=== PATIENT | female | born 1980 | race Caucasian/White ===

== ENCOUNTER 2019-06-15 12:04 | Emergency (ER) | payer SELFPAY ==
[~2019-06-15] VITALS: Ht 154.9 cm; Wt 61.4 kg
[2019-06-15] MEDS ORDERED: ONDANSETRON HCL 4 MG/2 ML VIAL IVP ONE (13:15)
[2019-06-15] MEDS ORDERED: MORPHINE SULFATE 4 MG/ML SYRINGE IVP ONE (13:15)
[2019-06-15] MEDS ORDERED: SODIUM CHLORIDE 0.9% 1,000 ML IV ONE (13:15)
[2019-06-15 13:35] LABS: APPEARANCE,URINE CLOUDY (CLEAR); BILIRUBIN,URINE NEGATIVE (NEGATIVE); GLUCOSE, URINE (UA) NEGATIVE (NEGATIVE); KETONES,URINE NEGATIVE (NEGATIVE); LEUKOCYTE ESTERASE ,URINE LARGE (NEGATIVE); NITRATE,URINE NEGATIVE (NEGATIVE); OCCULT BLOOD,URINE MODERATE (NEGATIVE); PROTEIN,URINE TRACE (NEGATIVE); UROBILINOGEN,URINE 0.2 mg/dL (<=1.0)
[2019-06-15 13:38] LABS: EOSINOPHILS % (AUTO) 0.8 % (1.0-6.0); HEMATOCRIT 40.2 % (36-46); HEMOGLOBIN 13.9 g/dL (12.0-16.0); LYMPHOCYTES # (AUTO) 2.1 K/uL (1.0-4.8); LYMPHOCYTES % (AUTO) 15.4 % (22.0-44.0); MEAN CORPUSCULAR HEMOGLOBIN 31.3 pg (26.0-34.0); MEAN CORPUSCULAR HGB CONC 34.4 G/dL (31.0-37.0); MEAN CORPUSCULAR VOLUME 91 fL (80-100); MONOCYTES # (AUTO) 0.6 K/uL (0.1-1.0); MONOCYTES % (AUTO) 4.4 % (2.0-9.0); NEUTROPHILS # (AUTO) 10.7 K/uL (1.8-7.7); NEUTROPHILS % (AUTO) 78.4 % (40.0-70.0); PLATELET COUNT (AUTO) 271 K/uL (150-450); RED BLOOD CELL COUNT(AUTO) 4.43 MIL/uL (4.00-5.20); RED CELL DISTRIBUTION WIDTH 13.4 % (11.5-14.5)
[2019-06-15 14:06] LABS: CALCIUM, TOTAL 8.5 mg/dL (8.8-10.5); CREATININE 1.16 mg/dL (0.60-1.30); POTASSIUM 3.5 mmol/L (3.5-5.1)
[2019-06-15 14:12] LABS: BACTERIA,URINE Few /HPF (None Seen); RBC,URINE 0-2 /HPF (0-2); SQUAMOUS EPITHELIAL CELL,UR Few /LPF (None Seen); WBC,URINE 51-100 /HPF (0-5)
[2019-06-15] MEDS ORDERED: KETOROLAC TROMETHAMINE 30 MG/ML VIAL IVP ONE (14:30)
[2019-06-15 15:28] VITALS: BP 121/75
[2019-06-15] MEDS ORDERED: PHENAZOPYRIDINE HCL 100 MG TABLET PO ONE (16:00)
[2019-06-15] MEDS ORDERED: SULFAMETHOX/TRIMETH DS 800-160 MG/TABLET PO ONE (16:00)
== END 2019-06-15 16:24 | disposition home or self-care (01) ==
LOC: EMS 12:07
DX: N30.00 Acute cystitis without hematuria (principal)
CPT/HCPCS: 36415; 74176; 80048; 81001; 81025; 84702; 84703; 85025; 87086; 96374; 96375; 99284; J1885; J2270; J2405; J7030

== ENCOUNTER 2021-10-07 05:10 | Emergency (ER) | payer OTHER ==
[~2021-10-07] VITALS: Ht 154.9 cm; Wt 55.5 kg
[2021-10-07 05:45] LABS: APPEARANCE,URINE CLEAR (CLEAR); BILIRUBIN,URINE NEGATIVE (NEGATIVE); GLUCOSE, URINE (UA) NEGATIVE (NEGATIVE); KETONES,URINE >=80 mg/dL (NEGATIVE); LEUKOCYTE ESTERASE ,URINE NEGATIVE (NEGATIVE); NITRATE,URINE NEGATIVE (NEGATIVE); OCCULT BLOOD,URINE SMALL (NEGATIVE); PH,URINE 8.5 (5.0-8.0); PROTEIN,URINE TRACE (NEGATIVE); UROBILINOGEN,URINE 0.2 mg/dL (<=1.0)
[2021-10-07 05:47] LABS: BACTERIA,URINE Rare /HPF (None Seen); WBC,URINE 0-2 /HPF (0-5)
[2021-10-07] MEDS ORDERED: ONDANSETRON HCL 4 MG/2 ML VIAL IVP ONE (06:15)
[2021-10-07] MEDS ORDERED: HYDROmorphone 2 MG/ML VIAL IVP ONE (06:15)
[2021-10-07] MEDS ORDERED: SODIUM CHLORIDE 0.9% 2,000 ML IV ONE (06:15)
[2021-10-07 06:34] LABS: BASOPHILS % (AUTO) 0.8 % (0.0-2.0); EOSINOPHILS % (AUTO) 0.2 % (1.0-6.0); HEMATOCRIT 38.9 % (36-46); HEMOGLOBIN 13.6 g/dL (12.0-16.0); LYMPHOCYTES # (AUTO) 1.4 K/uL (1.0-4.8); LYMPHOCYTES % (AUTO) 17.1 % (22.0-44.0); MEAN CORPUSCULAR HEMOGLOBIN 30.8 pg (26.0-34.0); MEAN CORPUSCULAR HGB CONC 34.9 G/dL (31.0-37.0); MEAN CORPUSCULAR VOLUME 88 fL (80-100); MONOCYTES # (AUTO) 0.6 K/uL (0.1-1.0); NEUTROPHILS # (AUTO) 6.1 K/uL (1.8-7.7); NEUTROPHILS % (AUTO) 74.9 % (40.0-70.0); PLATELET COUNT (AUTO) 246 K/uL (150-450); RED BLOOD CELL COUNT(AUTO) 4.41 MIL/uL (4.00-5.20)
[2021-10-07 06:52] LABS: ALANINE AMINOTRANSFERASE 18 U/L (12-78); ALBUMIN 3.8 g/dL (3.4-5.0); ALKALINE PHOSPHATASE 59 U/L (46-116); ANION GAP 13 mmol/L (8-16); ASPARTATE AMINOTRANSFERASE 22 U/L (15-37); BILIRUBIN,TOTAL 1.4 mg/dL (0.1-1.0); CALCIUM, TOTAL 8.6 mg/dL (8.8-10.5); CARBON DIOXIDE 26 mmol/L (22-29); CHLORIDE 101 mmol/L (98-107); CREATININE 0.89 mg/dL (0.60-1.30); GLOMERULAR FILTR. RATE CALC > 60 mL/min (>60); GLUCOSE,RANDOM 109 mg/dL (70-110); LIPASE 80 U/L (73-393); SODIUM SERUM 140 mmol/L (136-145); TOTAL PROTEIN, SERUM 7.8 g/dL (6.4-8.2); UREA NITROGEN, BLOOD 7 mg/dL (7-18)
[2021-10-07 07:30] VITALS: BP 144/89
[2021-10-07] MEDS ORDERED: MAG HYDROX/AL HYDROX/SIMETH ES 30 ML SUSPENSION UDCUP PO ONE (07:30)
[2021-10-07] MEDS ORDERED: LORazepam 1 MG TABLET PO ONE (07:30)
[2021-10-07] MEDS ORDERED: POTASSIUM CHLORIDE 10% 40 MEQ/30 ML LIQUID UDCUP PO ONE (07:30)
[2021-10-07] MEDS ORDERED: ONDA-104 PO (07:54)
[2021-10-07] MEDS ORDERED: FAMO20 PO (07:54)
[2021-10-07] MEDS ORDERED: MAAL30 PO (07:54)
== END 2021-10-07 08:02 | disposition home or self-care (01) ==
LOC: EMS 05:12
DX: K29.70 Gastritis, unspecified, without bleeding (principal); F43.20 Adjustment disorder, unspecified; E87.6 Hypokalemia; Z79.899 Other long term (current) drug therapy
CPT/HCPCS: 36415; 80053; 81001; 83690; 84703; 85025; 96361; 96374; 96375; 99284; G0480; J1170; J2405; J7030

== ENCOUNTER 2022-04-03 08:11 | Emergency (ER) | payer OTHER ==
[~2022-04-03] VITALS: Ht 154.9 cm; Wt 54.5 kg
[~2022-04-03 08:11] MED LIST: FAMO20 PO; MAAL30 PO; ONDA-104 PO
[2022-04-03 08:39] LABS: EOSINOPHILS % (AUTO) 0.1 % (1.0-6.0); HEMATOCRIT 39.9 % (36-46); HEMOGLOBIN 13.7 g/dL (12.0-16.0); LYMPHOCYTES # (AUTO) 1.2 K/uL (1.0-4.8); LYMPHOCYTES % (AUTO) 17.2 % (22.0-44.0); MEAN CORPUSCULAR HEMOGLOBIN 30.6 pg (26.0-34.0); MEAN CORPUSCULAR HGB CONC 34.4 G/dL (31.0-37.0); MEAN CORPUSCULAR VOLUME 89 fL (80-100); MONOCYTES # (AUTO) 0.5 K/uL (0.1-1.0); MONOCYTES % (AUTO) 6.4 % (2.0-9.0); NEUTROPHILS # (AUTO) 5.4 K/uL (1.8-7.7); NEUTROPHILS % (AUTO) 75.3 % (40.0-70.0); PLATELET COUNT (AUTO) 341 K/uL (150-450); RED BLOOD CELL COUNT(AUTO) 4.48 MIL/uL (4.00-5.20); RED CELL DISTRIBUTION WIDTH 17.7 % (11.5-14.5)
[2022-04-03 08:50] LABS: CALCIUM, TOTAL 8.4 mg/dL (8.8-10.5); CREATININE 1.22 mg/dL (0.60-1.30)
[2022-04-03 08:56] LABS: BILIRUBIN,TOTAL 0.3 mg/dL (0.1-1.0); TOTAL PROTEIN, SERUM 8.1 g/dL (6.4-8.2)
[2022-04-03 10:44] VITALS: BP 133/85
[2022-04-03] MEDS ORDERED: LORazepam 1 MG TABLET PO ONE (13:45)
[2022-04-03] MEDS ORDERED: LORA-999 PO (13:59)
[2022-04-03] MEDS ORDERED: MAG HYDROX/AL HYDROX/SIMETH ES 30 ML SUSPENSION UDCUP PO ONE (14:00)
[2022-04-03] MEDS ORDERED: PHENOBARB/HYOSCY/ATROPINE/SCOP 5 ML UDCUP ELIXIR PO ONE (14:00)
[2022-04-03 14:36] LABS: APPEARANCE,URINE HAZY (CLEAR); BILIRUBIN,URINE NEGATIVE (NEGATIVE); GLUCOSE, URINE (UA) NEGATIVE (NEGATIVE); KETONES,URINE 80-100 mg/dL (NEGATIVE); LEUKOCYTE ESTERASE ,URINE NEGATIVE (NEGATIVE); NITRATE,URINE POSITIVE (NEGATIVE); OCCULT BLOOD,URINE NEGATIVE (NEGATIVE); PH,URINE 8.5 (5.0-8.0); PROTEIN,URINE 100-200,SEE CONFIRM mg/dL (NEGATIVE); SPECIFIC GRAVITIY, URINE 1.028 (1.003-1.030); UROBILINOGEN,URINE <=1.0 mg/dL (<=1.0)
[2022-04-03 14:46] LABS: BACTERIA,URINE Many /HPF (None Seen); RBC,URINE 0-2 /HPF (0-2); SULFOSALICYLIC ACID,URINE 1+ (Negative); WBC,URINE 0-2 /HPF (0-5)
[2022-04-03 14:47] LABS: SQUAMOUS EPITHELIAL CELL,UR Moderate /LPF (None Seen)
== END 2022-04-03 14:27 | disposition home or self-care (01) ==
LOC: EMS 08:11
DX: R10.13 Epigastric pain (principal); F41.9 Anxiety disorder, unspecified
CPT/HCPCS: 80053; 81001; 81002; 83690; 85025; 87086; 93005; 99284

== ENCOUNTER 2023-12-18 18:36 | Emergency (ER) | payer OTHER ==
[~2023-12-18] VITALS: Ht 152.4 cm; Wt 54.5 kg
[~2023-12-18 18:36] MED LIST changes: +LORA-999 PO
[2023-12-18 20:11] LABS: BASOPHILS % (AUTO) 0.7 % (0.0-2.0); EOSINOPHILS % (AUTO) 0.1 % (1.0-6.0); HEMATOCRIT 36.6 % (36-46); HEMOGLOBIN 11.8 g/dL (12.0-16.0); LYMPHOCYTES # (AUTO) 1.7 K/uL (1.0-4.8); LYMPHOCYTES % (AUTO) 18.2 % (22.0-44.0); MEAN CORPUSCULAR HEMOGLOBIN 27.2 pg (26.0-34.0); MEAN CORPUSCULAR HGB CONC 32.3 G/dL (31.0-37.0); MEAN CORPUSCULAR VOLUME 84 fL (80-100); MONOCYTES # (AUTO) 0.6 K/uL (0.1-1.0); MONOCYTES % (AUTO) 6.7 % (2.0-9.0); NEUTROPHILS # (AUTO) 7.1 K/uL (1.8-7.7); NEUTROPHILS % (AUTO) 74.3 % (40.0-70.0); PLATELET COUNT (AUTO) 406 K/uL (150-450); RED BLOOD CELL COUNT(AUTO) 4.35 MIL/uL (4.00-5.20); RED CELL DISTRIBUTION WIDTH 19.6 % (11.5-14.5); WHITE BLOOD COUNT (AUTO) 9.6 K/uL (4.5-11.0)
[2023-12-18] MEDS: MAG HYDROX/ALUMINUM HYD/SIMETH 30 ML SUSPENSION UDCUP PO ONE (20:14)
[2023-12-18] MEDS: ACETAMINOPHEN 500 MG TABLET PO ONE (20:14)
[2023-12-18] MEDS: SODIUM CHLORIDE 0.9% 1,000 ML IV ONE ×2 (20:15→20:45)
[2023-12-18] MEDS: ONDANSETRON HCL 4 MG/2 ML VIAL IVP ONE (20:17)
[2023-12-18] MEDS: FAMOTIDINE 20 MG/2 ML VIAL IVP ONE (20:17)
[2023-12-18] MEDS: KETOROLAC TROMETHAMINE 30 MG/ML VIAL IVP ONE (20:17)
[2023-12-18 20:19] LABS: CALCIUM, TOTAL 8.6 mg/dL (8.8-10.5); CREATININE 1.03 mg/dL (0.60-1.30); POTASSIUM 3.4 mmol/L (3.5-5.1)
[2023-12-18 20:26] LABS: ALBUMIN 3.9 g/dL (3.4-5.0); BILIRUBIN,TOTAL 0.4 mg/dL (0.1-1.0); TOTAL PROTEIN, SERUM 8.3 g/dL (6.4-8.2)
[2023-12-18] MEDS ORDERED: IOHEXOL 350 MG/ML 100 ML VIAL ONE (20:30)
[2023-12-18] MEDS ORDERED: SODIUM CHLORIDE 0.9% 100 ML ONE (20:30)
[2023-12-18 21:17] LABS: ALCOHOL, BLOOD (SERUM) 63 mg/dL (0-10)
[2023-12-18 21:29] LABS: LACTIC ACID 5.9 mmol/L (0.4-2.0)
[2023-12-18] MEDS ORDERED: 0.9% SODIUM CHLORIDE 10 ML SYRINGE IVP PRN (22:00)
[2023-12-18] MEDS ORDERED: ONDANSETRON HCL 4 MG/2 ML VIAL IVP PRN (22:00)
[2023-12-18] MEDS ORDERED: ACETAMINOPHEN 325 MG TABLET PO PRN (22:00)
[2023-12-18 22:16] LABS: APPEARANCE,URINE CLEAR (CLEAR); BILIRUBIN,URINE NEGATIVE (NEGATIVE); COLOR,URINE LIGHT YELLOW (YELLOW); GLUCOSE, URINE (UA) NEGATIVE (NEGATIVE); KETONES,URINE 40-60 mg/dL (NEGATIVE); LEUKOCYTE ESTERASE ,URINE TRACE (NEGATIVE); NITRATE,URINE NEGATIVE (NEGATIVE); OCCULT BLOOD,URINE MODERATE (NEGATIVE); PROTEIN,URINE 30-70 mg/dL (NEGATIVE); UROBILINOGEN,URINE <=1.0 mg/dL (<=1.0)
[2023-12-18 22:23] LABS: ALCOHOL, URINE DRUG SCREEN POSITIVE (NEGATIVE); AMPHET/METH SCREEN,URINE NEGATIVE (NEGATIVE); BARBITURATE SCREEN, URINE NEGATIVE (NEGATIVE); BENZODIAZEPINES SCREEN,URINE NEGATIVE (NEGATIVE); CANNABINOID SCREEN,URINE NEGATIVE (NEGATIVE); COCAINE SCREEN,URINE NEGATIVE (NEGATIVE); METHADONE SCREEN, URINE NEGATIVE (NEGATIVE); OPIATE SCREEN,URINE NEGATIVE (NEGATIVE); PHENCYCLIDINE SCREEN,URINE NEGATIVE (NEGATIVE)
[2023-12-18 22:35] LABS: SPECIFIC GRAVITIY, URINE > 1.050 (1.003-1.030)
[2023-12-18 23:27] LABS: BACTERIA,URINE None Seen /HPF (None Seen); HYALINE CASTS, URINE 0-2 /LPF (None Seen); SQUAMOUS EPITHELIAL CELL,UR Few /LPF (None Seen)
[2023-12-19] MEDS ORDERED: HEPARIN SODIUM,PORCINE 5,000 UNITS/ML VIAL SQ SCH
[2023-12-19] MEDS ORDERED: CefTRIAXone 1 GM/DEXTROSE 50 ML IV SCH (01:00)
[2023-12-19] MEDS ORDERED: LORazepam 2 MG TABLET PO PRN (01:15)
[2023-12-19 01:17] VITALS: BP 125/69; PULSE 85; RESP 17; TEMP 97.9
[2023-12-19] MEDS ORDERED: 1: MAGNESIUM SULFATE 2 GM, MVI, ADULT NO.1 WITH VIT K 10 ML, THIAMINE 100 MG, FOLIC ACID IV SCH (02:00)
[2023-12-19] MEDS ORDERED: DOCUSATE SODIUM 100 MG CAPSULE PO SCH (09:00)
[2023-12-20] MEDS ORDERED: LORazepam 2 MG TABLET PO PRN (07:00)
[2023-12-20] MEDS ORDERED: LORazepam 2 MG TABLET PO SCH (09:00)
[2023-12-22] MEDS ORDERED: LORazepam 1 MG TABLET PO PRN (07:00)
[2023-12-22] MEDS ORDERED: LORazepam 1 MG TABLET PO SCH (09:00)
[2023-12-23] MEDS ORDERED: LORazepam 1 MG TABLET PO PRN (07:00)
== END 2023-12-19 01:21 | disposition left against medical advice (07) ==
LOC: EMS 18:49 → UNDOADMIN 22:51 → 5S 22:51 → EMS 12-19 01:21
DX: R11.2 Nausea with vomiting, unspecified (principal); E87.20 Acidosis, unspecified
CPT/HCPCS: 99285; 74177; 96374; 76705; 96375; 96361; 80053; 83605; 83690; 84703; 85025; 80307; 81001; 36415; G0480; J3490 ×3; J1885; J2405; Q9967; J7030 ×2; J7050; J0696; J3411; J3475

== ENCOUNTER 2024-01-01 09:36 | Emergency (ER) | payer OTHER ==
[~2024-01-01] VITALS: Ht 152.4 cm; Wt 56.8 kg
[2024-01-01 09:46] VITALS: BP 131/83; PULSE 89; RESP 16; TEMP 97.8
[2024-01-01 12:03] LABS: BASOPHILS % (AUTO) 0.6 % (0.0-2.0); EOSINOPHILS % (AUTO) 0 % (1.0-6.0); HEMATOCRIT 36.3 % (36-46); HEMOGLOBIN 11.8 g/dL (12.0-16.0); LYMPHOCYTES # (AUTO) 1.1 K/uL (1.0-4.8); LYMPHOCYTES % (AUTO) 13.1 % (22.0-44.0); MEAN CORPUSCULAR HGB CONC 32.5 G/dL (31.0-37.0); MEAN CORPUSCULAR VOLUME 83 fL (80-100); MONOCYTES # (AUTO) 0.3 K/uL (0.1-1.0); MONOCYTES % (AUTO) 4.1 % (2.0-9.0); NEUTROPHILS # (AUTO) 6.8 K/uL (1.8-7.7); NEUTROPHILS % (AUTO) 82.2 % (40.0-70.0); PLATELET COUNT (AUTO) 447 K/uL (150-450); RED BLOOD CELL COUNT(AUTO) 4.37 MIL/uL (4.00-5.20); WHITE BLOOD COUNT (AUTO) 8.3 K/uL (4.5-11.0)
[2024-01-01 12:18] LABS: CALCIUM, TOTAL 8.6 mg/dL (8.8-10.5); CREATININE 1.16 mg/dL (0.60-1.30); POTASSIUM 3.7 mmol/L (3.5-5.1)
[2024-01-01 12:42] LABS: ALBUMIN 3.7 g/dL (3.4-5.0); BILIRUBIN,TOTAL 0.3 mg/dL (0.1-1.0); TOTAL PROTEIN, SERUM 8.1 g/dL (6.4-8.2)
[2024-01-01] MEDS: ONDANSETRON HCL 4 MG/2 ML VIAL IM ONE (14:14)
[2024-01-01] MEDS: PB/HYOSCY/ATR/SCOP/LIDO/MAALOX 55 ML BOTTLE PO ONE (14:14)
[2024-01-01] MEDS: OMEPRAZOLE 20 MG CAPSULE PO ONE (14:14)
[2024-01-01] MEDS ORDERED: OMEP20 PO (14:40)
[2024-01-01] MEDS ORDERED: ACET-66 PO (14:40)
[2024-01-01] MEDS ORDERED: ONDA-104 PO (14:40)
== END 2024-01-01 16:00 | disposition home or self-care (01) ==
LOC: EMS 09:36
DX: K21.9 Gastro-esophageal reflux disease without esophagitis (principal)
CPT/HCPCS: 99284; 80053; 83690; 84702; 85025; 36415; 93005; 96372; J2405

== ENCOUNTER 2024-08-11 08:48 | Emergency (ER) | payer OTHER ==
[~2024-08-11] VITALS: Ht 63.5 cm; Wt 55.5 kg
[~2024-08-11 08:48] MED LIST changes: +ACET-66 PO; +OMEP20 PO; +TRAM50TA5 PO
[2024-08-11 08:57] VITALS: TEMP 98.4
[2024-08-11] MEDS: MAG HYDROX/ALUMINUM HYD/SIMETH ES 30 ML SUSPENSION UDCUP PO ONE (09:39)
[2024-08-11] MEDS: FAMOTIDINE 20 MG TABLET PO ONE (09:39)
[2024-08-11] MEDS: ONDANSETRON 4 MG TABLET PO ONE (09:39)
[2024-08-11 09:56] LABS: EOSINOPHILS % (AUTO) 0 % (1.0-6.0); HEMATOCRIT 35.9 % (36-46); HEMOGLOBIN 11.5 g/dL (12.0-16.0); LYMPHOCYTES # (AUTO) 0.7 K/uL (1.0-4.8); LYMPHOCYTES % (AUTO) 10.2 % (22.0-44.0); MEAN CORPUSCULAR HEMOGLOBIN 25.1 pg (26.0-34.0); MEAN CORPUSCULAR VOLUME 79 fL (80-100); MONOCYTES # (AUTO) 0.3 K/uL (0.1-1.0); MONOCYTES % (AUTO) 4.9 % (2.0-9.0); NEUTROPHILS # (AUTO) 5.9 K/uL (1.8-7.7); NEUTROPHILS % (AUTO) 83.9 % (40.0-70.0); PLATELET COUNT (AUTO) 476 K/uL (150-450); RED BLOOD CELL COUNT(AUTO) 4.57 MIL/uL (4.00-5.20); RED CELL DISTRIBUTION WIDTH 19.5 % (11.5-14.5)
[2024-08-11] MEDS: ONDANSETRON HCL 4 MG/2 ML VIAL IVP ONE (10:01)
[2024-08-11] MEDS: FAMOTIDINE 20 MG/2 ML VIAL IVP ONE (10:01)
[2024-08-11] MEDS: SODIUM CHLORIDE 0.9% 1,000 ML IV ONE (10:01)
[2024-08-11 10:08] LABS: CALCIUM, TOTAL 8.4 mg/dL (8.8-10.5); CREATININE 1.19 mg/dL (0.60-1.30); POTASSIUM 3.1 mmol/L (3.5-5.1)
[2024-08-11 10:19] LABS: ALBUMIN 3.8 g/dL (3.4-5.0); BILIRUBIN,DIRECT 0.1 mg/dL (0.00-0.20); BILIRUBIN,TOTAL 0.3 mg/dL (0.1-1.0); TOTAL PROTEIN, SERUM 8.2 g/dL (6.4-8.2)
[2024-08-11] MEDS: MORPHINE SULFATE 2 MG/ML SYRINGE IVP ONE (10:23)
[2024-08-11 10:41] LABS: APPEARANCE,URINE CLEAR (CLEAR); BILIRUBIN,URINE NEGATIVE (NEGATIVE); COLOR,URINE LIGHT YELLOW (YELLOW); GLUCOSE, URINE (UA) NEGATIVE (NEGATIVE); LEUKOCYTE ESTERASE ,URINE NEGATIVE (NEGATIVE); NITRATE,URINE NEGATIVE (NEGATIVE); OCCULT BLOOD,URINE MODERATE (NEGATIVE); PH,URINE 5.5 (5.0-8.0); PH,URINE DRUG SCREEN 5.5 (5.0-8.0); PROTEIN,URINE 30-70 mg/dL (NEGATIVE); SPECIFIC GRAVITIY, URINE 1.029 (1.003-1.030); UROBILINOGEN,URINE <=1.0 mg/dL (<=1.0)
[2024-08-11 10:51] LABS: BACTERIA,URINE None Seen /HPF (None Seen); RBC,URINE 0-2 /HPF (0-2); SQUAMOUS EPITHELIAL CELL,UR Moderate /LPF (None Seen); WBC,URINE None Seen /HPF (0-5)
[2024-08-11 10:54] LABS: ALCOHOL, URINE DRUG SCREEN POSITIVE (NEGATIVE); AMPHET/METH SCREEN,URINE NEGATIVE (NEGATIVE); BARBITURATE SCREEN, URINE NEGATIVE (NEGATIVE); CANNABINOID SCREEN,URINE NEGATIVE (NEGATIVE); COCAINE SCREEN,URINE NEGATIVE (NEGATIVE); METHADONE SCREEN, URINE NEGATIVE (NEGATIVE); OPIATE SCREEN,URINE NEGATIVE (NEGATIVE); PHENCYCLIDINE SCREEN,URINE NEGATIVE (NEGATIVE)
[2024-08-11 11:42] LABS: BENZODIAZEPINES SCREEN,URINE NEGATIVE (NEGATIVE)
[2024-08-11] MEDS ORDERED: DUPI300P SQ (12:01)
[2024-08-11] MEDS: METOCLOPRAMIDE HCL 5 MG/ML 2 ML VIAL IVP ONE (12:13)
[2024-08-11 13:38] VITALS: BP 134/75; PULSE 89; RESP 18; O2SAT 98
[2024-08-12] MEDS ORDERED: ONDA-243 PO (10:55)
[2024-08-12] MEDS ORDERED: FAMO20 PO (11:22)
== END 2024-08-11 13:39 | disposition home or self-care (01) ==
LOC: EMS 08:49
DX: K29.70 Gastritis, unspecified, without bleeding (principal); F10.129 Alcohol abuse with intoxication, unspecified; R44.0 Auditory hallucinations; Z87.19 Personal history of other diseases of the digestive system
CPT/HCPCS: 99284; 96374; 96375; 96361; 80048; 80076; 81001; 83690; 84702; 85025; 36415; 80307; G0480; J3490; J2765; J2270; J2405; Q0162; J7030

== ENCOUNTER 2024-08-12 07:44 | Emergency (ER) | payer OTHER ==
[~2024-08-12] VITALS: Ht 154.9 cm; Wt 59.1 kg
[~2024-08-12 07:44] MED LIST changes: -ACET-66 PO; +DUPI300P SQ; -LORA-999 PO; -MAAL30 PO; -OMEP20 PO; -ONDA-104 PO; -TRAM50TA5 PO
[2024-08-12 07:47] VITALS: TEMP 98.4
[2024-08-12] MEDS: SODIUM CHLORIDE 0.9% 1,000 ML IV ONE (08:30)
[2024-08-12] MEDS: ONDANSETRON HCL 4 MG/2 ML VIAL IVP ONE (08:30)
[2024-08-12 08:34] LABS: BASOPHILS % (AUTO) 1.3 % (0.0-2.0); EOSINOPHILS % (AUTO) 0 % (1.0-6.0); HEMATOCRIT 35.6 % (36-46); HEMOGLOBIN 11.5 g/dL (12.0-16.0); LYMPHOCYTES # (AUTO) 0.9 K/uL (1.0-4.8); LYMPHOCYTES % (AUTO) 13.7 % (22.0-44.0); MEAN CORPUSCULAR HEMOGLOBIN 25.3 pg (26.0-34.0); MEAN CORPUSCULAR HGB CONC 32.2 G/dL (31.0-37.0); MEAN CORPUSCULAR VOLUME 79 fL (80-100); MONOCYTES # (AUTO) 0.3 K/uL (0.1-1.0); MONOCYTES % (AUTO) 4.3 % (2.0-9.0); NEUTROPHILS # (AUTO) 5.1 K/uL (1.8-7.7); NEUTROPHILS % (AUTO) 80.7 % (40.0-70.0); PLATELET COUNT (AUTO) 443 K/uL (150-450); RED BLOOD CELL COUNT(AUTO) 4.54 MIL/uL (4.00-5.20); RED CELL DISTRIBUTION WIDTH 19.1 % (11.5-14.5); WHITE BLOOD COUNT (AUTO) 6.3 K/uL (4.5-11.0)
[2024-08-12 08:40] LABS: CALCIUM, TOTAL 8.3 mg/dL (8.8-10.5); CREATININE 1.19 mg/dL (0.60-1.30); POTASSIUM 3.2 mmol/L (3.5-5.1)
[2024-08-12 08:46] LABS: ALBUMIN 3.7 g/dL (3.4-5.0); BILIRUBIN,DIRECT 0.1 mg/dL (0.00-0.20); BILIRUBIN,TOTAL 0.4 mg/dL (0.1-1.0); TOTAL PROTEIN, SERUM 8.1 g/dL (6.4-8.2)
[2024-08-12] MEDS ORDERED: MAG HYDROX/ALUMINUM HYD/SIMETH ES 30 ML SUSPENSION UDCUP PO ONE (09:00)
[2024-08-12] MEDS: PB/HYOSCY/ATR/SCOP/LIDO/MAALOX 55 ML BOTTLE PO ONE (09:06)
[2024-08-12] MEDS: DICYCLOMINE HCL 20 MG TABLET PO ONE (09:06)
[2024-08-12] MEDS: POTASSIUM CHLORIDE 20 MEQ ER TABLET PO ONE (09:06)
[2024-08-12] MEDS: MORPHINE SULFATE 4 MG/ML SYRINGE IVP ONE (10:15)
[2024-08-12] MEDS ORDERED: ONDA-243 PO (10:55)
[2024-08-12] MEDS ORDERED: FAMO20 PO (11:22)
[2024-08-12] MEDS: METOCLOPRAMIDE HCL 5 MG/ML 2 ML VIAL IVP ONE (11:26)
[2024-08-12] MEDS: HALOPERIDOL LACTATE 5 MG/ML VIAL IVP ONE (12:06)
[2024-08-12 12:18] VITALS: BP 138/92; PULSE 94; RESP 18; O2SAT 99
[2024-08-13] MEDS ORDERED: MAG30ORA11 PO (08:19)
[2024-08-13] MEDS ORDERED: OMEP20 PO (08:19)
[2024-08-13] MEDS ORDERED: ONDA-104 PO (08:19)
[2024-08-13] MEDS ORDERED: METO-296 PO (08:22)
== END 2024-08-12 12:19 | disposition home or self-care (01) ==
LOC: EMS 07:46
DX: E87.6 Hypokalemia (principal); K29.70 Gastritis, unspecified, without bleeding; Z87.19 Personal history of other diseases of the digestive system
CPT/HCPCS: 99285; 96374; 96375; 96361; 80048; 80076; 83690; 84703; 85025; 36415; J1630; J2765; J2270; J2405; J7030

== ENCOUNTER 2024-08-13 03:40 | Emergency (ER) | payer OTHER ==
[~2024-08-13] VITALS: Ht 157.5 cm; Wt 57.0 kg
[~2024-08-13 03:40] MED LIST changes: +ONDA-243 PO
[2024-08-13 04:02] VITALS: TEMP 98.2
[2024-08-13 04:51] LABS: BASOPHILS % (AUTO) 1.2 % (0.0-2.0); EOSINOPHILS % (AUTO) 0.2 % (1.0-6.0); HEMATOCRIT 34.1 % (36-46); HEMOGLOBIN 10.6 g/dL (12.0-16.0); LYMPHOCYTES # (AUTO) 1.5 K/uL (1.0-4.8); LYMPHOCYTES % (AUTO) 23.4 % (22.0-44.0); MEAN CORPUSCULAR HEMOGLOBIN 24.4 pg (26.0-34.0); MEAN CORPUSCULAR VOLUME 79 fL (80-100); MONOCYTES # (AUTO) 0.5 K/uL (0.1-1.0); MONOCYTES % (AUTO) 7.3 % (2.0-9.0); NEUTROPHILS # (AUTO) 4.4 K/uL (1.8-7.7); NEUTROPHILS % (AUTO) 67.9 % (40.0-70.0); PLATELET COUNT (AUTO) 423 K/uL (150-450); RED BLOOD CELL COUNT(AUTO) 4.33 MIL/uL (4.00-5.20); RED CELL DISTRIBUTION WIDTH 18.9 % (11.5-14.5); WHITE BLOOD COUNT (AUTO) 6.5 K/uL (4.5-11.0)
[2024-08-13 04:58] LABS: CREATININE 1.09 mg/dL (0.60-1.30); POTASSIUM 3.6 mmol/L (3.5-5.1)
[2024-08-13] MEDS: SODIUM CHLORIDE 0.9% 1,000 ML IV ONE (04:59)
[2024-08-13] MEDS: PANTOPRAZOLE SODIUM 40 MG/VIAL IVP ONE (04:59)
[2024-08-13] MEDS: ONDANSETRON HCL 4 MG/2 ML VIAL IVP ONE ×2 (04:59→06:18)
[2024-08-13 05:10] LABS: ALBUMIN 3.5 g/dL (3.4-5.0); BILIRUBIN,DIRECT 0.1 mg/dL (0.00-0.20); BILIRUBIN,TOTAL 0.5 mg/dL (0.1-1.0); TOTAL PROTEIN, SERUM 7.4 g/dL (6.4-8.2)
[2024-08-13 06:10] LABS: APPEARANCE,URINE CLEAR (CLEAR); BILIRUBIN,URINE NEGATIVE (NEGATIVE); COLOR,URINE COLORLESS (YELLOW); GLUCOSE, URINE (UA) NEGATIVE (NEGATIVE); KETONES,URINE NEGATIVE (NEGATIVE); LEUKOCYTE ESTERASE ,URINE NEGATIVE (NEGATIVE); NITRATE,URINE NEGATIVE (NEGATIVE); OCCULT BLOOD,URINE NEGATIVE (NEGATIVE); PH,URINE 7.5 (5.0-8.0); PROTEIN,URINE NEGATIVE (NEGATIVE); SPECIFIC GRAVITIY, URINE 1.009 (1.003-1.030); UROBILINOGEN,URINE <=1.0 mg/dL (<=1.0)
[2024-08-13] MEDS: MORPHINE SULFATE 4 MG/ML SYRINGE IVP ONE (06:19)
[2024-08-13] MEDS: PB/HYOSCY/ATR/SCOP/LIDO/MAALOX 55 ML BOTTLE PO ONE (06:19)
[2024-08-13] MEDS: METOCLOPRAMIDE HCL 5 MG/ML 2 ML VIAL IVP ONE (07:39)
[2024-08-13] MEDS ORDERED: MAG30ORA11 PO (08:19)
[2024-08-13] MEDS ORDERED: ONDA-104 PO (08:19)
[2024-08-13] MEDS ORDERED: OMEP20 PO (08:19)
[2024-08-13] MEDS ORDERED: METO-296 PO (08:22)
[2024-08-13] MEDS: KETOROLAC TROMETHAMINE 30 MG/ML VIAL IVP ONE (08:24)
[2024-08-13 08:32] VITALS: BP 129/85; PULSE 82; RESP 18; O2SAT 100
== END 2024-08-13 08:34 | disposition home or self-care (01) ==
LOC: EMS 03:40
DX: K21.9 Gastro-esophageal reflux disease without esophagitis (principal); F10.129 Alcohol abuse with intoxication, unspecified; R44.0 Auditory hallucinations; Z87.19 Personal history of other diseases of the digestive system
CPT/HCPCS: 99284; 96374; 96375; 96361; 80048; 80076; 83690; 84702; 85025; 36415; 93005; 96376; 81003; G0480; J1885; J2765; J2270; J2405; J2470; J7030

== ENCOUNTER 2024-11-28 08:35 | Emergency (ER) | payer OTHER ==
[~2024-11-28] VITALS: Ht 162.6 cm; Wt 63.6 kg
[~2024-11-28 08:35] MED LIST changes: +MAG30ORA11 PO; +METO-296 PO; +OMEP-148 PO; +ONDA-104 PO; -ONDA-243 PO
[2024-11-28 08:40] VITALS: TEMP 97.9
[2024-11-28] MEDS ORDERED: LOTI10DR OU (08:42)
[2024-11-28 08:54] LABS: BASOPHILS % (AUTO) 0.7 % (0.0-2.0); EOSINOPHILS % (AUTO) 0 % (1.0-6.0); LYMPHOCYTES # (AUTO) 0.8 K/uL (1.0-4.8); LYMPHOCYTES % (AUTO) 8.2 % (22.0-44.0); MEAN CORPUSCULAR HEMOGLOBIN 23.7 pg (26.0-34.0); MEAN CORPUSCULAR HGB CONC 31.4 G/dL (31.0-37.0); MEAN CORPUSCULAR VOLUME 75 fL (80-100); MONOCYTES # (AUTO) 0.4 K/uL (0.1-1.0); MONOCYTES % (AUTO) 4.2 % (2.0-9.0); NEUTROPHILS # (AUTO) 8.1 K/uL (1.8-7.7); PLATELET COUNT (AUTO) 410 K/uL (150-450); RED BLOOD CELL COUNT(AUTO) 4.65 MIL/uL (4.00-5.20); RED CELL DISTRIBUTION WIDTH 19.2 % (11.5-14.5); WHITE BLOOD COUNT (AUTO) 9.3 K/uL (4.5-11.0)
[2024-11-28 08:55] LABS: NEUTROPHILS % (AUTO) 86.9 % (40.0-70.0)
[2024-11-28 09:03] LABS: CALCIUM, TOTAL 8.7 mg/dL (8.8-10.5); CREATININE 1.17 mg/dL (0.60-1.30); POTASSIUM 3.9 mmol/L (3.5-5.1)
[2024-11-28 09:12] LABS: RBC MORPHOLOGY COMMENT ABNORMAL RBC MORPH
[2024-11-28 09:58] LABS: ALBUMIN 3.6 g/dL (3.4-5.0); BILIRUBIN,DIRECT 0.1 mg/dL (0.00-0.20); BILIRUBIN,TOTAL 0.3 mg/dL (0.1-1.0); TOTAL PROTEIN, SERUM 7.8 g/dL (6.4-8.2)
[2024-11-28 10:02] LABS: COVID AG,FIA SOURCE NASAL SWAB
[2024-11-28 10:21] LABS: INFLUENZA TYPE A NEGATIVE FOR TYPE A (NEGATIVE); INFLUENZA TYPE B NEGATIVE FOR TYPE B (NEGATIVE); SARS-COV2 (COVID) ANTIGEN,FIA Negative (Negative)
[2024-11-28] MEDS: CIPROFLOXACIN HCL 250 MG TABLET PO ONE (10:39)
[2024-11-28] MEDS: ONDANSETRON HCL 4 MG/2 ML VIAL IVP ONE (10:40)
[2024-11-28] MEDS: SODIUM CHLORIDE 0.9% 1,000 ML IV ONE (10:40)
[2024-11-28] MEDS: DICYCLOMINE HCL 10 MG CAPSULE PO ONE (11:31)
[2024-11-28 12:12] VITALS: BP 138/89; PULSE 84; RESP 18; O2SAT 98
[2024-11-28] MEDS: PB/HYOSCY/ATR/SCOP/LIDO/MAALOX 55 ML BOTTLE PO ONE (13:15)
[2024-11-28] MEDS ORDERED: FAMO20 PO (13:40)
== END 2024-11-28 13:51 | disposition home or self-care (01) ==
LOC: EMS 08:44
DX: K21.9 Gastro-esophageal reflux disease without esophagitis (principal); R19.7 Diarrhea, unspecified; Z87.19 Personal history of other diseases of the digestive system; Z20.822 Contact with and (suspected) exposure to COVID-19
CPT/HCPCS: 99284; 96374; 96361; 87426; 80048; 80076; 83690; 85025; 87804; 36415; J2405; J7030

== ENCOUNTER 2024-12-20 08:50 | Emergency (ER) | payer OTHER ==
[~2024-12-20] VITALS: Ht 154.9 cm; Wt 63.3 kg
[~2024-12-20 08:50] MED LIST changes: -DUPI300P SQ; +LOTI10DR OU; -MAG30ORA11 PO; -METO-296 PO; -OMEP-148 PO; -ONDA-104 PO
[2024-12-20 09:20] VITALS: TEMP 97.605248
[2024-12-20] MEDS: SODIUM CHLORIDE 0.9% 1,000 ML IV ONE (09:31)
[2024-12-20] MEDS: ONDANSETRON HCL 4 MG/2 ML VIAL IVP ONE ×2 (09:31→12:13)
[2024-12-20 09:46] LABS: BASOPHILS % (AUTO) 0.6 % (0.0-2.0); EOSINOPHILS % (AUTO) 0 % (1.0-6.0); HEMATOCRIT 35.5 % (36-46); HEMOGLOBIN 11.3 g/dL (12.0-16.0); LYMPHOCYTES % (AUTO) 10.6 % (22.0-44.0); MEAN CORPUSCULAR HEMOGLOBIN 23.1 pg (26.0-34.0); MEAN CORPUSCULAR HGB CONC 31.9 G/dL (31.0-37.0); MEAN CORPUSCULAR VOLUME 73 fL (80-100); MONOCYTES # (AUTO) 0.4 K/uL (0.1-1.0); MONOCYTES % (AUTO) 4.5 % (2.0-9.0); NEUTROPHILS # (AUTO) 8.3 K/uL (1.8-7.7); NEUTROPHILS % (AUTO) 84.3 % (40.0-70.0); PLATELET COUNT (AUTO) 411 K/uL (150-450); RED CELL DISTRIBUTION WIDTH 19.5 % (11.5-14.5); WHITE BLOOD COUNT (AUTO) 9.8 K/uL (4.5-11.0)
[2024-12-20 09:52] LABS: ANION GAP 16 mmol/L (8-16); CALCIUM, TOTAL 8.4 mg/dL (8.8-10.5); CARBON DIOXIDE 24 mmol/L (22-29); CHLORIDE 100 mmol/L (98-107); CREATININE 1.11 mg/dL (0.60-1.30); GLOMERULAR FILTR. RATE CALC 53 mL/min (>60); GLUCOSE,RANDOM 115 mg/dL (70-110); POTASSIUM 3.3 mmol/L (3.5-5.1); SODIUM SERUM 140 mmol/L (136-145); UREA NITROGEN, BLOOD 17 mg/dL (7-18)
[2024-12-20 09:56] LABS: ALBUMIN 3.7 g/dL (3.4-5.0); BILIRUBIN,DIRECT 0.2 mg/dL (0.00-0.20); BILIRUBIN,TOTAL 0.5 mg/dL (0.1-1.0); TOTAL PROTEIN, SERUM 7.8 g/dL (6.4-8.2)
[2024-12-20 10:03] LABS: HCG,QUANTITATIVE < 1 mIU/mL (0-6); LIPASE 28 U/L (16-77); TROPONIN I-HIGH SENSITIVITY 6 ng/L (<51)
[2024-12-20 10:15] LABS: RBC MORPHOLOGY COMMENT ABNORMAL RBC MORPH
[2024-12-20] MEDS: POTASSIUM CHLORIDE 20 MEQ ER TABLET PO ONE (10:36)
[2024-12-20] MEDS: LORazepam 2 MG/ML VIAL IVP ONE (10:43)
[2024-12-20 11:09] LABS: APPEARANCE,URINE CLEAR (CLEAR); BILIRUBIN,URINE NEGATIVE (NEGATIVE); COLOR,URINE LIGHT YELLOW (YELLOW); GLUCOSE, URINE (UA) NEGATIVE (NEGATIVE); KETONES,URINE 40-60 mg/dL (NEGATIVE); LEUKOCYTE ESTERASE ,URINE NEGATIVE (NEGATIVE); NITRATE,URINE NEGATIVE (NEGATIVE); OCCULT BLOOD,URINE TRACE (NEGATIVE); PH,URINE 5.5 (5.0-8.0); PROTEIN,URINE 30-70 mg/dL (NEGATIVE); SPECIFIC GRAVITIY, URINE 1.031 (1.003-1.030); UROBILINOGEN,URINE <=1.0 mg/dL (<=1.0)
[2024-12-20 11:17] LABS: RBC,URINE 0-2 /HPF (0-2)
[2024-12-20 11:18] LABS: BACTERIA,URINE Few /HPF (None Seen); SQUAMOUS EPITHELIAL CELL,UR Few /LPF (None Seen); WBC,URINE 0-2 /HPF (0-5)
[2024-12-20] MEDS: PB/HYOSCY/ATR/SCOP/LIDO/MAALOX 55 ML BOTTLE PO ONE (11:51)
[2024-12-20] MEDS ORDERED: ONDA-104 PO (12:01)
[2024-12-20] MEDS ORDERED: FAMO20 PO (12:01)
[2024-12-20 12:30] VITALS: BP 142/86; PULSE 98; RESP 18; O2SAT 98
[2024-12-20] MEDS: METOCLOPRAMIDE HCL 5 MG/ML 2 ML VIAL IM ONE (12:49)
== END 2024-12-20 12:52 | disposition home or self-care (01) ==
LOC: EMS 08:58
DX: K29.70 Gastritis, unspecified, without bleeding (principal); R10.13 Epigastric pain; R11.2 Nausea with vomiting, unspecified; F10.10 Alcohol abuse, uncomplicated; F41.9 Anxiety disorder, unspecified; K21.9 Gastro-esophageal reflux disease without esophagitis; Z87.19 Personal history of other diseases of the digestive system; Y90.9 Presence of alcohol in blood, level not specified
CPT/HCPCS: 99285; 96374; 96361; 96375; 80048; 80076; 81001; 83690; 84484; 84702; 85025; 36415; 93005; 96376; 96372; J2060; J2765; J2405; J7030

== ENCOUNTER 2025-04-05 02:51 | Emergency (ER) | payer OTHER ==
[~2025-04-05] VITALS: Ht 154.9 cm; Wt 54.5 kg
[~2025-04-05 02:51] MED LIST changes: +ONDA-104 PO
[2025-04-05 02:59] VITALS: TEMP 98.1
[2025-04-05] MEDS: ONDANSETRON 4 MG TABLET PO ONE (03:22)
[2025-04-05] MEDS: MAG HYDROX/ALUMINUM HYD/SIMETH ES 30 ML SUSPENSION UDCUP PO ONE (03:22)
[2025-04-05] MEDS: FAMOTIDINE 20 MG TABLET PO ONE (03:22)
[2025-04-05] MEDS: SODIUM CHLORIDE 0.9% 1,000 ML IV ONE (03:33)
[2025-04-05] MEDS: ONDANSETRON HCL 4 MG/2 ML VIAL IVP ONE (03:33)
[2025-04-05] MEDS: FAMOTIDINE 20 MG/2 ML VIAL IVP ONE (03:33)
[2025-04-05 03:38] LABS: PLATELET COUNT (AUTO) 431 K/uL (150-450); RED BLOOD CELL COUNT(AUTO) 4.92 MIL/uL (4.00-5.20); RED CELL DISTRIBUTION WIDTH 21.0 % (11.5-14.5); WHITE BLOOD COUNT (AUTO) 10.5 K/uL (4.5-11.0)
[2025-04-05 03:47] LABS: CALCIUM, TOTAL 8.3 mg/dL (8.8-10.5); CREATININE 1.23 mg/dL (0.60-1.30); GLOMERULAR FILTR. RATE CALC 47.0 mL/min (>60); GLUCOSE,RANDOM 137.0 mg/dL (70-110); SODIUM SERUM 138.0 mmol/L (136-145); UREA NITROGEN, BLOOD 14.0 mg/dL (7-18)
[2025-04-05] MEDS: METOCLOPRAMIDE HCL 5 MG/ML 2 ML VIAL IVP ONE (04:09)
[2025-04-05 05:10] VITALS: BP 145/93; PULSE 101; RESP 18; O2SAT 97
== END 2025-04-05 05:20 | disposition home or self-care (01) ==
LOC: EMS 02:51
DX: K29.70 Gastritis, unspecified, without bleeding (principal); F10.129 Alcohol abuse with intoxication, unspecified; E87.6 Hypokalemia; R11.2 Nausea with vomiting, unspecified; Z87.19 Personal history of other diseases of the digestive system; Y90.9 Presence of alcohol in blood, level not specified
CPT/HCPCS: 99284; 96374; 96375; 96361; 80048; 85025; 36415; J3490; J2765; J2405; Q0162; J7030

== ENCOUNTER 2025-05-01 03:36 | Emergency (ER) | payer OTHER ==
[~2025-05-01] VITALS: Ht 154.9 cm; Wt 63.6 kg
[2025-05-01 03:41] VITALS: TEMP 97.3
[2025-05-01] MEDS: ONDANSETRON 4 MG TABLET PO ONE (04:38)
[2025-05-01] MEDS: SODIUM CHLORIDE 0.9% 1,000 ML IV ONE (04:39)
[2025-05-01 04:40] LABS: PLATELET COUNT (AUTO) 387 K/uL (150-450); RED BLOOD CELL COUNT(AUTO) 4.35 MIL/uL (4.00-5.20); RED CELL DISTRIBUTION WIDTH 20.5 % (11.5-14.5); WHITE BLOOD COUNT (AUTO) 8.3 K/uL (4.5-11.0)
[2025-05-01 04:44] LABS: RBC MORPHOLOGY COMMENT ABNORMAL RBC MORPH
[2025-05-01] MEDS: PB/HYOSCY/ATR/SCOP/LIDO/MAALOX 55 ML BOTTLE PO ONE (04:47)
[2025-05-01] MEDS: METOCLOPRAMIDE HCL 5 MG/ML 2 ML VIAL IVP ONE (04:47)
[2025-05-01] MEDS: FAMOTIDINE 20 MG/2 ML VIAL IVP ONE (04:48)
[2025-05-01 04:49] LABS: CALCIUM, TOTAL 8.4 mg/dL (8.8-10.5); CREATININE 1.07 mg/dL (0.60-1.30); GLOMERULAR FILTR. RATE CALC 55.0 mL/min (>60); GLUCOSE,RANDOM 119.0 mg/dL (70-110); SODIUM SERUM 139.0 mmol/L (136-145); UREA NITROGEN, BLOOD 14.0 mg/dL (7-18)
[2025-05-01 04:56] LABS: ASPARTATE AMINOTRANSFERASE 20.0 U/L (15-37); TOTAL PROTEIN, SERUM 7.5 g/dL (6.4-8.2)
[2025-05-01 05:06] LABS: HCG,QUANTITATIVE < 1 mIU/mL (0-6)
[2025-05-01] MEDS: ONDANSETRON HCL 4 MG/2 ML VIAL IVP ONE (06:27)
[2025-05-01] MEDS: MORPHINE SULFATE 10 MG/ML VIAL IVP ONE (06:28)
[2025-05-01 06:36] LABS: APPEARANCE,URINE CLEAR (CLEAR); GLUCOSE, URINE (UA) NEGATIVE (NEGATIVE); LEUKOCYTE ESTERASE ,URINE TRACE (NEGATIVE); NITRATE,URINE NEGATIVE (NEGATIVE); OCCULT BLOOD,URINE LARGE (NEGATIVE); SPECIFIC GRAVITIY, URINE 1.029 (1.003-1.030)
[2025-05-01 06:50] VITALS: BP 143/98; PULSE 98; RESP 14; O2SAT 98
[2025-05-01 06:58] LABS: SQUAMOUS EPITHELIAL CELL,UR Moderate /LPF (None Seen)
[2025-05-01] MEDS ORDERED: ONDA-104 PO (06:58)
[2025-05-01] MEDS ORDERED: MAG30ORA11 PO (06:58)
[2025-05-01] MEDS ORDERED: OMEP-148 PO (06:58)
== END 2025-05-01 07:18 | disposition home or self-care (01) ==
LOC: EMS 03:45
DX: K29.70 Gastritis, unspecified, without bleeding (principal); F10.129 Alcohol abuse with intoxication, unspecified; N89.8 Other specified noninflammatory disorders of vagina; F17.210 Nicotine dependence, cigarettes, uncomplicated; Z79.899 Other long term (current) drug therapy; Z87.19 Personal history of other diseases of the digestive system; Y90.6 Blood alcohol level of 120-199 mg/100 ml
CPT/HCPCS: 99284; 96374; 96361; 96375; 80048; 80076; 83690; 84702; 85025; 36415; 81001; G0480; J3490; J2765; J2270; J2405; Q0162

== ENCOUNTER → 2025-05-25 | Emergency (ER) | payer OTHER ==
[~2025-05-25] VITALS: Ht 154.9 cm; Wt 56.8 kg
[~2025-05-25] MED LIST changes: +MAG30ORA11 PO; +OMEP-148 PO
[2025-05-25 01:59] VITALS: TEMP 99
[2025-05-25] MEDS: ONDANSETRON 4 MG TABLET PO ONE (02:17)
[2025-05-25 02:41] LABS: PLATELET COUNT (AUTO) 453 K/uL (150-450); RED BLOOD CELL COUNT(AUTO) 4.91 MIL/uL (4.00-5.20); RED CELL DISTRIBUTION WIDTH 22.4 % (11.5-14.5); WHITE BLOOD COUNT (AUTO) 9.8 K/uL (4.5-11.0)
[2025-05-25 02:51] LABS: CALCIUM, TOTAL 8.2 mg/dL (8.8-10.5); CREATININE 0.97 mg/dL (0.60-1.30); GLOMERULAR FILTR. RATE CALC > 60 mL/min (>60); GLUCOSE,RANDOM 129 mg/dL (70-110); SODIUM SERUM 141 mmol/L (136-145); UREA NITROGEN, BLOOD 12 mg/dL (7-18)
[2025-05-25 02:54] LABS: RBC MORPHOLOGY COMMENT ABNORMAL RBC MORPH
[2025-05-25 03:08] LABS: HCG,QUANTITATIVE < 1 mIU/mL (0-6)
[2025-05-25] MEDS: ONDANSETRON HCL 4 MG/2 ML VIAL IVP ONE (04:18)
[2025-05-25] MEDS: SODIUM CHLORIDE 0.9% 1,000 ML IV ONE (04:18)
[2025-05-25] MEDS: FAMOTIDINE 20 MG/2 ML VIAL IVP ONE (04:52)
[2025-05-25] MEDS: PB/HYOSCY/ATR/SCOP/LIDO/MAALOX 55 ML BOTTLE PO ONE (04:52)
[2025-05-25 05:13] LABS: ASPARTATE AMINOTRANSFERASE 18.0 U/L (15-37); TOTAL PROTEIN, SERUM 8.0 g/dL (6.4-8.2)
[2025-05-25 05:35] VITALS: BP 145/92; PULSE 98; RESP 18; O2SAT 98
== END | disposition still patient (30) ==
LOC: EMS 01:58
DX: K29.50 Unspecified chronic gastritis without bleeding (principal); K29.20 Alcoholic gastritis without bleeding; F10.20 Alcohol dependence, uncomplicated; R10.13 Epigastric pain; R11.2 Nausea with vomiting, unspecified; N89.8 Other specified noninflammatory disorders of vagina; F17.210 Nicotine dependence, cigarettes, uncomplicated; Z79.899 Other long term (current) drug therapy; Z87.19 Personal history of other diseases of the digestive system; Y90.6 Blood alcohol level of 120-199 mg/100 ml
CPT/HCPCS: 99284; 96374; 96361; 96375; 80048; 80076; 83690; 84702; 85025; 36415; 93005; G0480; J3490; J2405; Q0162; J7030

== ENCOUNTER 2025-06-03 23:49 | Emergency (ER) | payer OTHER ==
[~2025-06-03] VITALS: Ht 154.9 cm; Wt 56.8 kg
[2025-06-03 23:52] VITALS: TEMP 98.8
[2025-06-04 01:15] LABS: PLATELET COUNT (AUTO) 323 K/uL (150-450); RED BLOOD CELL COUNT(AUTO) 4.15 MIL/uL (4.00-5.20); RED CELL DISTRIBUTION WIDTH 22.0 % (11.5-14.5); WHITE BLOOD COUNT (AUTO) 12.9 K/uL (4.5-11.0)
[2025-06-04 01:26] LABS: CALCIUM, TOTAL 7.3 mg/dL (8.8-10.5); CREATININE 0.94 mg/dL (0.60-1.30); GLOMERULAR FILTR. RATE CALC > 60 mL/min (>60); GLUCOSE,RANDOM 111 mg/dL (70-110); SODIUM SERUM 142 mmol/L (136-145); UREA NITROGEN, BLOOD 8 mg/dL (7-18)
[2025-06-04 01:42] LABS: PATHOLOGY REVIEW, DIFF A; RBC MORPHOLOGY COMMENT ABNORMAL RBC MORPH
[2025-06-04 03:14] LABS: APPEARANCE,URINE HAZY (CLEAR); GLUCOSE, URINE (UA) NEGATIVE (NEGATIVE); LEUKOCYTE ESTERASE ,URINE MODERATE (NEGATIVE); NITRATE,URINE NEGATIVE (NEGATIVE); OCCULT BLOOD,URINE SMALL (NEGATIVE); SPECIFIC GRAVITIY, URINE 1.026 (1.003-1.030)
[2025-06-04] MEDS: ONDANSETRON 4 MG TABLET PO ONE (03:39)
[2025-06-04] MEDS: FAMOTIDINE 20 MG TABLET PO ONE (03:39)
[2025-06-04 03:41] LABS: SQUAMOUS EPITHELIAL CELL,UR Moderate /LPF (None Seen)
[2025-06-04] MEDS: SODIUM CHLORIDE 0.9% 1,000 ML IV ONE (04:29)
[2025-06-04] MEDS: PANTOPRAZOLE SODIUM 40 MG/VIAL IVP ONE (04:32)
[2025-06-04] MEDS: METOCLOPRAMIDE HCL 5 MG/ML 2 ML VIAL IVP ONE (04:32)
[2025-06-04] MEDS ORDERED: OMEP-148 PO (05:09)
[2025-06-04] MEDS ORDERED: ONDA-104 PO (05:09)
[2025-06-04 05:36] VITALS: BP 144/85; PULSE 88; RESP 18; O2SAT 97
== END 2025-06-04 05:37 | disposition home or self-care (01) ==
LOC: EMS 23:49
DX: K29.20 Alcoholic gastritis without bleeding (principal); F17.210 Nicotine dependence, cigarettes, uncomplicated; D64.9 Anemia, unspecified; I10 Essential (primary) hypertension; Z79.899 Other long term (current) drug therapy; Z87.19 Personal history of other diseases of the digestive system
CPT/HCPCS: 99284; 80048; 81001; 83690; 85025; 36415; 96374; 96361; 96375; J2765; Q0162; J2470; J7030